=== PATIENT | female | born 1960 | race African-American/Black ===

== ENCOUNTER 2016-07-13 01:57 | Emergency (ER) | payer OTHER ==
[~2016-07-13] VITALS: Ht 165.1 cm; Wt 86.0 kg
[~2016-07-13 01:57] MED LIST: FLUT50SP EACH NARE; Z.0.NO CURRENT MEDS
[2016-07-13 02:01] VITALS: BP 154/68; PULSE 100; RESP 16; TEMP 98.1; O2SAT 97
[2016-07-13 02:23] VITALS: BP 132/80; PULSE 92; RESP 17; O2SAT 99
--- NOTE | 2016-07-13 03:41 | PD ---
HPI Chief Complaint: GI Complaint Time Seen by Provider: 03:36 Travel History International Travel<30 days: No Contact w/Intl Traveler<30days: No Traveled to known affect area: No History of Present Illness HPI The patient is a 56-year-old female that comes in with diarrhea since yesterday. She does have nausea and vomiting without fever. She states she has no abdominal pain now. She has no major medical problems. 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 She denies any blood in the stool or vomitus. She denies any foreign travel, recent antibodies, exposure to anyone with similar symptoms, bowel problems like regional enteritis or ulcerative colitis. PFSH Past Medical History Anemia: Yes Arthritis: No Asthma: No Autoimmune Disease: No Blood Disorders: No Anxiety: No Depression: No Heart Rhythm Problems: No Cancer: No Cardiovascular Problems: No High Cholesterol: No Chest Pain: No Congestive Heart Failure: No COPD: No Cerebrovascular Accident: No Diabetes: No Diminished Hearing: No GERD: No Glaucoma: No Headaches: No Hepatitis: No Hiatal Hernia: No Hypertension: No Kidney Stones: No Myocardial Infarction: No Renal Failure: No Seizures: No Sickle Cell Disease: No Sleep Apnea: No Thyroid Disease: No Ulcer: No Influenza Vaccination: No ?: Not Menopausal: Yes : 3 Para: 1 Miscarriage: 2 Past Surgical History Abdominal Surgery: Yes (2004,2005 " TUMOR REMOVED") AICD: No Gynecologic Surgery: Yes (OVARIES REMOVED) Hysterectomy: Yes Pacemaker: No Other Surgery: No Family History Family Myocardial Infarction: Yes Social History Alcohol Use: No Tobacco Use: No Substance Use: No Allergies-Medications (Allergen,Severity, Reaction): Coded Allergies: No Known Allergies (Verified , 07/13/16) Reported Meds & Prescriptions Reported Meds & Active Scripts Active No Active Prescriptions or Reported Medications Review of Systems Except as stated in HPI: all other systems reviewed are Neg Physical Exam Narrative GENERAL: The patient is fairly well-hydrated, alert, oriented 3 in no apparent distress. Her vital signs initially showed a heart rate of 100 but repeat vital signs. Deal heart rate of 92 with blood pressure 132/80 and oximetry 99%. SKIN: Warm and dry. No skin rash is seen. HEAD: Atraumatic. Normocephalic. EYES: Pupils equal and round. No scleral icterus. No injection or drainage. ENT: No nasal bleeding or discharge. Mucous membranes pink and moist. NECK: Trachea midline. No JVD. CARDIOVASCULAR: Regular rate and rhythm. No murmur appreciated. RESPIRATORY: No accessory muscle use. Clear to auscultation. Breath sounds equal bilaterally. GASTROINTESTINAL: Abdomen soft, non-tender, nondistended. Hepatic and splenic margins not palpable. No guarding or rebound is present. MUSCULOSKELETAL: No obvious deformities. No clubbing. No cyanosis. No edema. NEUROLOGICAL: Awake and alert. No obvious cranial nerve deficits. Motor grossly within normal limits. Normal speech. PSYCHIATRIC: Appropriate mood and affect; insight and judgment normal. Data Data Last Documented VS Vital Signs Date Time Temp Pulse Resp B/P Pulse Ox O2 Delivery O2 Flow Rate FiO2 07/13/16 02:23 92 17 132/80 99 Room Air 07/13/16 02:01 98.1 MDM Medical Decision Making Medical Screen Exam Complete: Yes Emergency Medical Condition: Yes Medical Record Reviewed: Yes Differential Diagnosis Gastroenteritis, dehydration, bacterial enteritis, colitis Narrative Course The patient has successfully been drinking Gatorade here in the emergency department. She will need a 5 day work excuse as well as Phenergan for nausea. Impression: Gastroenteritis Diagnosis Primary Impression: Gastroenteritis Additional Instructions: Make sure you hydrate yourself with clear liquids like Gatorade. Your urine should be light in color. The Phenergan is for nausea should you get nauseated. Follow-up with your primary care physician next week. Med/Other Pt SpecificInfo: Prescription(s) given Scripts Promethazine (Phenergan)25 Mg Tab25 Mg PO Q6H PRN (Nausea/Vomiting) #20 TAB Ref 0 Prov:Jamie Lee MD 07/13/16 Disposition: DISCHARGE HOME Condition: Stable Jamie Lee MD Jul 13, 2016 03:41
[2016-07-13] MEDS ORDERED: PROM25TA5 PO (05:40)
[2016-07-13 06:10] VITALS: BP 128/71
== END 2016-07-13 06:28 | disposition home or self-care (01) ==
LOC: NEPC 01:57
DX: K52.9 Noninfective gastroenteritis and colitis, unspecified (principal)
CPT/HCPCS: 99283

== ENCOUNTER 2017-01-09 04:46 | Emergency (ER) | payer OTHER ==
[~2017-01-09] VITALS: Ht 165.1 cm; Wt 85.5 kg
[~2017-01-09 04:46] MED LIST changes: -FLUT50SP EACH NARE; +PROM25TA5 PO; -Z.0.NO CURRENT MEDS
[2017-01-09 04:48] VITALS: BP 148/79; PULSE 87; RESP 18; TEMP 97.9; O2SAT 98
[2017-01-09] MEDS ORDERED: LOSA50TA PO (04:55)
--- NOTE | 2017-01-09 05:03 | PD ---
HPI Chief Complaint: Cold / Flu Symptoms Time Seen by Provider: 05:01 Travel History International Travel<30 days: No Contact w/Intl Traveler<30days: No Traveled to known affect area: No History of Present Illness HPI 56-year-old black female presents to emergency department with a 1.5 day history of runny nose, sneezing, cough and general malaise. She denies any fever or chills. No significant ear pain or sore throat. No shortness of breath or wheezing. No sputum production. No nausea vomiting or diarrhea. No urinary symptoms. Symptoms are mild. PFSH Past Medical History Anemia: Yes Arthritis: No Asthma: No Autoimmune Disease: No Blood Disorders: No Anxiety: No Depression: No Heart Rhythm Problems: No Cancer: No Cardiovascular Problems: No High Cholesterol: No Chest Pain: No Congestive Heart Failure: No COPD: No Cerebrovascular Accident: No Diabetes: No Diminished Hearing: No Gastrointestinal Disorders: No GERD: No Glaucoma: No Headaches: No Hepatitis: No Hiatal Hernia: No Hypertension: No Kidney Stones: No Musculoskeletal: No Neurologic: No Psychiatric: No Reproductive: No Respiratory: No Immunizations Current: Yes Myocardial Infarction: No Renal Failure: No Seizures: No Sickle Cell Disease: No Sleep Apnea: No Thyroid Disease: No Ulcer: No Tetanus Vaccination: < 5 Years ?: Not Menopausal: Yes : 3 Para: 1 Miscarriage: 2 Past Surgical History Abdominal Surgery: Yes (2004,2005 " TUMOR REMOVED") AICD: No Gynecologic Surgery: Yes (OVARIES REMOVED) Hysterectomy: Yes Insulin Pump: No Pacemaker: No Other Surgery: No Family History Family Myocardial Infarction: Yes Social History Alcohol Use: No Tobacco Use: No Substance Use: No Allergies-Medications (Allergen,Severity, Reaction): Coded Allergies: No Known Allergies (Verified , 01/09/17) Reported Meds & Prescriptions Reported Meds & Active Scripts Active Reported Losartan (Losartan Potassium) 50 Mg Tab 50 Mg PO DAILY Review of Systems Except as stated in HPI: all other systems reviewed are Neg Physical Exam Narrative GENERAL: Well-developed, well-nourished in no acute distress. Nontoxic appearing. HEAD: Normocephalic, atraumatic. EYES: Pupils equal round and reactive. Extraocular motions intact. No scleral icterus. No injection or drainage. ENT: TMs clear without erythema. The external auditory canals clear. Nose: clear . Posterior pharynx is pink and moist. No tonsillar edema or exudate. Uvula midline. Airway patent. NECK: Trachea midline.Supple, nontender, moves head freely. No central bony tenderness or spasm. CARDIOVASCULAR: Regular rate and rhythm without murmurs, gallops, or rubs. RESPIRATORY: Clear to auscultation. Breath sounds equal bilaterally. No wheezes , rales, or rhonchi. GASTROINTESTINAL: Abdomen soft, non-tender, nondistended. No hepato-splenomegaly , or palpable masses. No guarding. EXTREMITIES: No clubbing, cyanosis, or edema. No joint tenderness, effusion, or edema noted. BACK: Nontender without deformity or crepitance. No flank tenderness. Data Data Last Documented VS Vital Signs Date Time Temp Pulse Resp B/P (MAP) Pulse Ox O2 Delivery O2 Flow Rate FiO2 01/09/17 04:48 97.9 87 18 148/79 (102) 98 [facility] Medical Decision Making Medical Screen Exam Complete: Yes Emergency Medical Condition: Yes Medical Record Reviewed: Yes Differential Diagnosis MDM: High Differential diagnoses: Pneumonia, bronchitis, URI, asthma, RAD, legionnaire's disease, SARS, ARDS, influenza, bronchiolitis, RSV,PE,CHF Narrative Course This is viral URI Diagnosis Primary Impression: Viral URI Patient Instructions: General Instructions Additional Instructions: Rest. Increase fluids. Tylenol and Advil. Robitussin-DM. Or Mucinex Followup with your DrBertha in one week. Return to the ER for any problems. Med/Other Pt SpecificInfo: No Meds Exist/No RX given Disposition: 01 DISCHARGE HOME Condition: Stable Nigel Hays Jan 09, 2017 05:03
== END 2017-01-09 05:17 | disposition home or self-care (01) ==
LOC: NEPD 04:46
DX: J06.9 Acute upper respiratory infection, unspecified (principal)
CPT/HCPCS: 99282